=== PATIENT | female | born 1985 | race Caucasian/White ===

== ENCOUNTER 2019-01-14 22:31 | Inpatient (IN) | payer OTHER ==
[~2019-01-14] VITALS: Ht 162.6 cm; Wt 83.6 kg
[~2019-01-14 22:31] MED LIST: MOTRIN 800800 MG/TAB PO; PERCOCET 325 MG1 TA2 PO; PRENATAL1 TA1 PO; PROTONIX20 MG PO; TUMS EXTRA STR750 MG PO; ZANTAC 7575 MG PO
[2019-01-14 22:48] VITALS: BP 111/64; PULSE 85; TEMP 98.5
[2019-01-14] MEDS ORDERED: ZOLOFT 50MG50 MG PO (22:51)
[2019-01-14] MEDS ORDERED: PRILOTC PO (22:51)
[2019-01-14 23:30] VITALS: BP 107/73; PULSE 107
[2019-01-15] VITALS (47 sets, daily range): BP systolic 89–129; BP diastolic 53–80; PULSE 70–116; TEMP 97.9–98.9
[2019-01-15 01:41] LABS: BASO % 0.4 % (0.0-2.0); EOS # 0.2 (0.0-0.7); EOS % 2.2 % (0-4.0); GRAN # 6.8 (1.4-6.5); GRAN % 68.6 % (42.2-75.2); HEMATOCRIT 30.4 % (37.0-47.0); HEMOGLOBIN 9.3 g/dl (12.5-16.0); LYMPH # 2.2 (1.2-3.4); LYMPH % 22.2 % (20.0-51.0); MEAN CELL VOLUME 82 fl (80.0-100.0); MEAN CORPUSCULAR HEMOGLOBIN 25 pg (27.0-31.0); MEAN CORPUSCULAR HGB CONC 31 g/dl (33.0-37.0); MEAN PLATELET VOLUME 9.9 fl (7.4-10.4); MONO # 0.6 (0.1-0.6); MONO % 6.1 % (1.7-9.3); PLATELET COUNT 272 K/mm3 (130-400); RED BLOOD COUNT 3.73 M/mm3 (4.10-5.30); REDCELL DISTRIBUTION WIDTH-CV 15.8 % (11.5-14.5)
[2019-01-16 08:29] VITALS: BP 112/64; PULSE 78; TEMP 97.8
[2019-01-16 15:36] VITALS: BP 120/64; PULSE 76; TEMP 98.1
[2019-01-16 23:00] VITALS: BP 118/62; PULSE 95; TEMP 98
[2019-01-17 08:30] VITALS: BP 117/81; PULSE 83; TEMP 97.2
[2019-01-17] MEDS ORDERED: IBU800 M1 PO (09:37)
== END 2019-01-17 10:50 | disposition home or self-care (01) | DRG 807 ==
LOC: LDRO 22:31 → OB 01-15 01:08 → LDR 01-15 01:08 → OB 01-15 15:00
PROVIDERS: ADMIT Obstetrics & Gynecology
PROC: 10E0XZZ Delivery of Products of Conception, External Approach (ICD-10-PCS; principal; 2019-01-15)
PROC: 10907ZC Drainage of Amniotic Fluid, Therapeutic from Products of Conception, Via Natural or Artificial Opening (ICD-10-PCS; 2019-01-15)
PROC: 0HQ9XZZ Repair Perineum Skin, External Approach (ICD-10-PCS; 2019-01-15)
DX: O99.344 Other mental disorders complicating childbirth (principal); Z37.0 Single live birth; O70.0 First degree perineal laceration during delivery; Z3A.37 37 weeks gestation of pregnancy; F32.9 Major depressive disorder, single episode, unspecified; O62.1 Secondary uterine inertia; O43.123 Velamentous insertion of umbilical cord, third trimester; O76 Abnormality in fetal heart rate and rhythm complicating labor and delivery; O99.62 Diseases of the digestive system complicating childbirth; K21.9 Gastro-esophageal reflux disease without esophagitis
CPT/HCPCS: J2540; J2590; J2795; J7120